=== PATIENT | female | born 1965 | race Caucasian/White ===

== ENCOUNTER 2017-05-18 22:31 | Emergency (ER) | payer OTHER ==
[~2017-05-18] VITALS: Ht 167.6 cm; Wt 112.6 kg
[~2017-05-18 22:31] MED LIST: ADVAIR 500/501 DISK IH; ALLEGRA60 MG PO; ANAPROX DS550 M1 PO; ASPIRIN E.C.81 M1 PO; ATARAX,VISTARIL25 MG PO; AVELOX400 MG PO; BACTRIM,SEPT1 TABLET PO; KEFLEX500 MG PO; NAPROSYN500 MG PO; NEURONTIN100 MG PO; PREDNISONE20 MG PO; PROAIR HFA8.5 GM IH; Proventil,Ventolin H IH; ULTRAM50 MG PO; VOLTAREN50 MG PO; ZANTAC300 MG PO; Zyrtec PO
[2017-05-18 23:27] LABS: HEMATOCRIT 41.5 % (36.0-46.0); MCH 30.1 PG (29.0-34.0); MCHC 34.7 G/DL (30.0-36.0); MCV 86.8 FL (83-99); PLATELET COUNT 335 K/uL (156-360); RBC DIS.WIDTH-SD 38.4 % (39-53); RED BLOOD COUNT 4.78 M/uL (3.80-5.20); WHITE BLOOD COUNT 13.6 K/uL (4.1-10.2)
[2017-05-18 23:28] LABS: CHLORIDE 105 mEq/L (99-109); POTASSIUM 3.5 mEq/L (3.7-5.4); SODIUM 139 mEq/L (136-147)
[2017-05-18 23:30] LABS: BILIRUBIN NEGATIVE; BLOOD NEGATIVE; COLOR YELLOW ((YELLOW)); GLUCOSE (STRIP) NEGATIVE; KETONES NEGATIVE; LEUKOCYTES NEGATIVE; NITRITE NEGATIVE; PROTEIN (STRIP) NEGATIVE; SPECIFIC GRAVITY 1.023 (1.000-1.030); UROBILINOGEN 0.2 MG/DL (0.2-1.0)
[2017-05-18 23:31] LABS: GLUCOSE 95 mg/dL (70-99)
[2017-05-18 23:32] LABS: ANION GAP 12 MEQ/L (2-14)
[2017-05-18 23:33] LABS: TOTAL BILIRUBIN 0.5 mg/dL (0.0-1.0)
[2017-05-18 23:34] LABS: ALKALINE PHOSPHATASE 73 IU/L (3-129); GFR ESTIMATE (CALCULATED) > 59 mL/min/
[2017-05-18 23:35] LABS: UREA NITROGEN (BUN) 12 mg/dL (9-23)
[2017-05-18 23:38] LABS: LIPASE 51 U/L (1.0-51.0)
[2017-05-18 23:41] LABS: ADD MIUA? NO; UCUL ADDED? NO
[2017-05-18 23:44] LABS: QUANTITATIVE HCG < 4.0 MIU/ML
[2017-05-19] MEDS ORDERED: BENTYL10 MG PO (00:37)
[2017-05-19] MEDS ORDERED: ZOFRAN ODT4 MG PO (00:37)
[2017-05-19] MEDS ORDERED: PANTOPRAZOLE SO40 MG PO (00:40)
[2017-05-19 00:49] VITALS: BP 112/72
== END 2017-05-19 00:57 | disposition home or self-care (01) ==
LOC: EME 22:31
DX: R10.9 Unspecified abdominal pain (principal); R11.0 Nausea; Z98.890 Other specified postprocedural states; J45.909 Unspecified asthma, uncomplicated; Z79.82 Long term (current) use of aspirin
CPT/HCPCS: 74177; 80053; 81003; 83690; 84702; 85027; 99281; 99285; J2405; J3010; J7030

== ENCOUNTER 2018-02-17 16:44 | Emergency (ER) | payer OTHER ==
[~2018-02-17] VITALS: Ht 167.6 cm; Wt 114.2 kg
[~2018-02-17 16:44] MED LIST changes: +BENTYL10 MG PO; +PANTOPRAZOLE SO40 MG PO; +ZOFRAN ODT4 MG PO
[2018-02-17 17:27] LABS: HEMATOCRIT 42.4 % (36.0-46.0); HEMOGLOBIN 14.7 G/DL (11.9-15.5); MCH 30.9 PG (29.0-34.0); MCHC 34.7 G/DL (30.0-36.0); MCV 89.3 FL (83-99); PLATELET COUNT 316 K/uL (156-360); RBC DIS.WIDTH-SD 39.5 % (39-53); RED BLOOD COUNT 4.75 M/uL (3.80-5.20); WHITE BLOOD COUNT 13.1 K/uL (4.1-10.2)
[2018-02-17 17:36] LABS: ALBUMIN 4.4 g/dL (3.2-4.8); CHLORIDE 107 mEq/L (99-109); SODIUM 137 mEq/L (136-147)
[2018-02-17 17:39] LABS: GLUCOSE 113 mg/dL (70-99); TOTAL PROTEIN 7.3 g/dL (6.4-8.3)
[2018-02-17 17:41] LABS: TOTAL BILIRUBIN 0.4 mg/dL (0.0-1.0)
[2018-02-17 17:42] LABS: ALKALINE PHOSPHATASE 82 IU/L (3-129); GFR ESTIMATE (CALCULATED) > 59 mL/min/
[2018-02-17 17:43] LABS: UREA NITROGEN (BUN) 9 mg/dL (9-23)
[2018-02-17 17:44] LABS: AST (GOT) 25 IU/L (2-34)
[2018-02-17 17:45] LABS: ALT (GPT) 33 IU/L (3-49)
[2018-02-17 18:43] LABS: LIPASE 44 U/L (1.0-51.0)
[2018-02-17 18:49] LABS: QUANTITATIVE HCG < 4.0 MIU/ML
[2018-02-17 20:25] LABS: APPEARANCE CLEAR ((CLEAR)); BILIRUBIN NEGATIVE; BLOOD NEGATIVE; COLOR STRAW ((YELLOW)); GLUCOSE (STRIP) NEGATIVE; KETONES NEGATIVE; LEUKOCYTES NEGATIVE; NITRITE NEGATIVE; PROTEIN (STRIP) NEGATIVE; SPECIFIC GRAVITY 1.018 (1.000-1.030); UCUL ADDED? NO; UROBILINOGEN 0.2 MG/DL (0.2-1.0)
[2018-02-17] MEDS ORDERED: NAPROSYN500 MG PO (23:30)
[2018-02-18 00:08] VITALS: BP 148/91
== END 2018-02-18 00:11 | disposition home or self-care (01) ==
LOC: EME 16:44 → EXP 16:44
DX: N83.201 Unspecified ovarian cyst, right side (principal); R10.31 Right lower quadrant pain; Z90.710 Acquired absence of both cervix and uterus; Z90.49 Acquired absence of other specified parts of digestive tract; J45.909 Unspecified asthma, uncomplicated; F41.9 Anxiety disorder, unspecified; Z79.82 Long term (current) use of aspirin; Z88.5 Allergy status to narcotic agent; Z88.1 Allergy status to other antibiotic agents
CPT/HCPCS: 74177; 76856; 80053; 81003; 83690; 84702; 85027; 99281; 99283; J1885; J2405; J7030